=== PATIENT | male | born 1955 | race Caucasian/White ===

== ENCOUNTER → 2017-12-11 19:55 | Outpatient (CLI) | payer OTHER, SELFPAY | PROVIDERS: PCP Family Medicine; Visit Provider Specialist | DX: G47.33 Obstructive sleep apnea (adult) (pediatric) (principal); I10 Essential (primary) hypertension | CPT/HCPCS: 95811 ==

== ENCOUNTER → 2018-01-18 10:56 | Outpatient (CLI) | payer OTHER, SELFPAY ==
--- NOTE | 2018-01-18 11:01 | XR_ITS ---
XR chest 2V HISTORY: ITS.REASON: COUGH ORDERING PHYSICIAN: Rik Siddiqi MD PATIENT AGE: 63 years COMPARISON: 12/16/2012 FINDINGS: The cardiomediastinal silhouette and pulmonary vascularity are within normal limits. The lungs are clear without infiltrates, suspicious nodules, or pleural effusions. There are minimal fibrotic changes in the right middle lobe similar to the previous exam There is mild eventration of the right hemidiaphragm anteriorly. IMPRESSION: No change with no acute finding
== END ==
PROVIDERS: PCP Family Medicine; Visit Provider Family Medicine
DX: R05 Cough (principal)
CPT/HCPCS: 71046

== ENCOUNTER → 2020-04-14 10:19 | Outpatient (CLI) | payer MEDICARE, OTHER, SELFPAY ==
[2020-04-14 12:09] LABS: Coronavirus 19 IgG Antibody Negative (Negative); Coronavirus 19 IgM Antibody Negative (Negative)
== END ==
PROVIDERS: Visit Provider Surgery
DX: Z01.818 Encounter for other preprocedural examination (principal); Z12.11 Encounter for screening for malignant neoplasm of colon
CPT/HCPCS: 36415; 86328

== ENCOUNTER 2020-04-15 06:47 | Day surgery (SDC) | payer MEDICARE, OTHER, SELFPAY ==
[2020-04-13 10:50] VITALS: BMI 39.5
[2020-04-15 07:07] VITALS: BP 149/93; PULSE 64; RESP 18; TEMP 36.7; O2SAT 95
--- NOTE | 2020-04-15 07:48 | P.PN_ITS ---
[facility] Anesthesia Checklist - Patient Identification Patient Identification: Arm Band, Verbal (Name & ) - Structural Data Admitted From: Home Planned Operative Procedure/s: Colonoscopy Verified Documents: Surgical Consent, History and Physical - NPO Status Verified Time NPO: 15:00 - Chart Verification Results Verified: None - Additional verifications Anesthesia Reactions: No - Airway Assessment C-Spine Mobility Assessed: Yes TMJ Mobility Assessed: Yes Dentition: Poor Dentition (chipped) - Neurological Assessment Level of Consciousness: Awake, Alert, Appropriate, Follows Commands Hx Seizures: Yes (Doose syndrome) Numbness or tingling in extremities: No - Anesthesia Plan Anesthesia Risk discussed: Yes Anesthesia Plan: Verified ASA Class: IV Anesthesia Type: MAC [facility] History I have reviewed the patient's past medical history: Yes Medical History: Reports:: Hyperlipidemia, Hypertension, Seizures (as a child) Denies:: Cancer, Diabetes Mellitus Type 1, Diabetes Mellitus Type 2, Internal Pacemaker, MRSA *Have you ever received a pneumonia vaccine?: No *Have you received a flu vaccine this season?: Yes Other Medical History: Reports: Other Comment:: SONIA, morbid obesity Anesthesia experience/problems:: no prior complications Laterality Cases: Bilateral: Other Other Surgeries: Yes: Cholecystectomy, Colonoscopy, Other. No: Pacemaker Amputation: No Fractures: No - *Social History Last grade of school completed: Advanced degree Smoking Status: Never smoker Alcohol Intake: never Alcohol Intake Frequency:: holidays/special occasions only Substance Use Type: denies use *Occupational Status:: employed Housing: house Household Members: significant other *Travel in the last 8 weeks: None Family Hx:: Asthma, Cancer, Heart Attack, Hyperlipidemia
[2020-04-15 07:58] VITALS: O2SAT 97
--- NOTE | 2020-04-15 08:33 | [facility].SCOPE ---
- Procedure: Date: 04/15/20 Procedure Performed:: Colonoscopy with polypectomy by means other than snare Indications:: History of colon polyps Performing Provider:: Pedro Carl MD Referring Provider:: . Sedation:: Monitored anesthesia care Procedure:: After informed consent was obtained the patient was taken to the endoscopy suite. Sedation ensued after the patient was transferred to the left lateral decubitus position. Pulse, blood pressure, and oxygen saturation were monitored throughout the procedure. Digital rectal exam revealed no significant abnormality. The colonoscope was placed in position. The entire colon was evaluated. The colonoscope was carefully removed and the patient was transferred to recovery in stable condition. Please see findings and specimens below for detail. Findings:: Bowel preparation moderate to poor Minimal hemorrhoidal tag/cushions Significant lack of relaxation Small cecal polyp Specimens:: Small cecal polyp Recommendations:: Timing of repeat colonoscopy is pending pathology but will likely be around 3 years secondary to history of polyps and limitations in visualization. Complications:: No immediate Estimated blood obtained (mL): 1
[2020-04-15 08:35] VITALS: BP 91/64; PULSE 74; RESP 18; TEMP 36.4; O2SAT 92
[2020-04-15 08:45] VITALS: BP 98/49; PULSE 79; RESP 18; O2SAT 95
[2020-04-15 08:55] VITALS: BP 123/69; PULSE 76; RESP 18; O2SAT 94
[2020-04-15 09:05] VITALS: BP 122/82; PULSE 68; RESP 18; O2SAT 95
== END 2020-04-15 09:05 | disposition home or self-care (01) ==
PROVIDERS: PCP Internal Medicine; Visit Provider Surgery
PROC: 0DJD8ZZ Inspection of Lower Intestinal Tract, Via Natural or Artificial Opening Endoscopic (ICD-10-PCS; CPT 45380; principal; 2020-04-15 08:00)
DX: Z12.11 Encounter for screening for malignant neoplasm of colon (principal); Z86.010 Personal history of colon polyps; K64.9 Unspecified hemorrhoids; K63.5 Polyp of colon; K62.89 Other specified diseases of anus and rectum; I10 Essential (primary) hypertension; E78.5 Hyperlipidemia, unspecified; G47.33 Obstructive sleep apnea (adult) (pediatric); E66.01 Morbid (severe) obesity due to excess calories; Z68.39 Body mass index [BMI] 39.0-39.9, adult; Z82.5 Family history of asthma and other chronic lower respiratory diseases; Z83.438 Family history of other disorder of lipoprotein metabolism and other lipidemia
CPT/HCPCS: 45380; 88305

== ENCOUNTER → 2023-04-04 10:18 | Outpatient (CLI) | payer MEDICARE, OTHER, SELFPAY | PROVIDERS: Visit Provider Specialist | DX: G47.33 Obstructive sleep apnea (adult) (pediatric) (principal) | CPT/HCPCS: 94762 ==